=== PATIENT | female | born 1990 | race Caucasian/White ===

== ENCOUNTER 2021-04-21 19:59 | Emergency (ER) | payer OTHER ==
[2021-04-21 20:49] LABS: BILIRUBIN NEGATIVE (NEGATIVE); BLOOD 1+ Ery/uL (NEGATIVE); CLARITY CLEAR (CLEAR); COLOR YELLOW (YELLOW); GLUCOSE (U) NORMAL (NORMAL); LEUKOCYTES NEGATIVE Leu/uL (NEGATIVE); NITRITE NEGATIVE (NEGATIVE); PROTEIN NEGATIVE (NEGATIVE); SPECIFIC GRAVITY 1.015 (1.001-1.030); pH 7.5 (5.0-9.0)
[2021-04-21 20:56] LABS: BACTERIA TRACE
[2021-04-21 21:03] LABS: BASOPHIL 0.3 % (0-2); EOSINOPHIL 2.9 % (0-5); HCT 39.1 % (37.0-47.0); HGB 13.1 g/dl (12.5-16.0); LYMPHOCYTE 37.1 % (15-48); MCH 30.8 pg (25.0-31.0); MCHC 33.5 g/dL (32.0-36.0); MCV 91.8 fL (78.0-100.0); MONOCYTE 6.8 % (0-12); MPV 10.2 fL (6.0-9.5); NEUTROPHIL 52.8 % (41-80); NRBC 0; PLT 372 K/uL (150-400); RBC 4.26 M/uL (4.20-5.40); RDW 12.3 % (11.5-14.0); WBC 9.4 K/uL (4.0-10.5)
[2021-04-21 21:24] LABS: BILIRUBIN - TOTAL 0.2 mg/dL (0.2-1.0); BUN/CREAT RATIO (CALC) 10.3 RATIO; CREATININE 0.87 mg/dL (0.51-0.95); GLOBULIN (CALCULATION) 3.1 g/dL; POTASSIUM 3.4 mmol/L (3.5-5.1); TOTAL PROTEIN 7.1 g/dL (6.4-8.2)
[2021-04-21] MEDS ORDERED: MEDROL 4MG DOSEP4 MG PO (22:04)
[2021-04-21] MEDS ORDERED: IBUPROFEN800 MG PO (22:04)
[2021-04-21] MEDS ORDERED: NORCO 5-325 TA1 EACH PO (22:04)
[2021-04-21] MEDS ORDERED: ONDANSETRON ODT4 MG SL (22:44)
== END 2021-04-21 22:45 | disposition home or self-care (01) ==
LOC: FER 19:59
PROVIDERS: Emergency Medicine Emergency Medical Services
DX: R07.89 Other chest pain (principal); R10.12 Left upper quadrant pain; F17.210 Nicotine dependence, cigarettes, uncomplicated
CPT/HCPCS: 36415; 71045; 80053; 81001; 84484; 85025; 85379; J1100; J1170; J1885; J2270; J2405

== ENCOUNTER 2021-04-23 22:45 | Emergency (ER) | payer OTHER ==
[~2021-04-23 22:45] MED LIST: IBUPROFEN800 MG PO; MEDROL 4MG DOSEP4 MG PO; NORCO 5-325 TA1 EACH PO; ONDANSETRON ODT4 MG SL
[2021-04-23 23:45] LABS: HCT 33.6 % (37.0-47.0); HGB 11.4 g/dl (12.5-16.0); MCH 31.6 pg (25.0-31.0); MCHC 33.9 g/dL (32.0-36.0); MCV 93.1 fL (78.0-100.0); MPV 10.6 fL (6.0-9.5); RBC 3.61 M/uL (4.20-5.40); RDW 12.3 % (11.5-14.0); WBC 10.3 K/uL (4.0-10.5)
[2021-04-24 00:03] LABS: CREATININE 1.07 mg/dL (0.51-0.95); POTASSIUM 3.4 mmol/L (3.5-5.1)
== END 2021-04-24 00:25 | disposition home or self-care (01) ==
LOC: FER 22:45
PROVIDERS: Emergency Medicine
DX: R07.89 Other chest pain (principal); F17.200 Nicotine dependence, unspecified, uncomplicated
CPT/HCPCS: 36415; 80048; 84484; 93005; J1885

== ENCOUNTER 2021-11-06 21:39 | Emergency (ER) | payer OTHER ==
[2021-11-06 21:59] LABS: BASOPHIL 0.4 % (0-2); EOSINOPHIL 3.6 % (0-5); HCT 36.8 % (37.0-47.0); HGB 12.6 g/dl (12.5-16.0); LYMPHOCYTE 31.9 % (15-48); MCH 31.5 pg (25.0-31.0); MCHC 34.2 g/dL (32.0-36.0); MONOCYTE 4.8 % (0-12); MPV 10.5 fL (6.0-9.5); NRBC 0; PLT 277 K/uL (150-400); WBC 10.9 K/uL (4.0-10.5)
[2021-11-06 22:15] LABS: CREATININE 0.75 mg/dL (0.51-0.95); POTASSIUM 3.8 mmol/L (3.5-5.1)
[2021-11-06] MEDS ORDERED: MEDROL 4MG DOSEP4 MG PO (22:43)
[2021-11-06] MEDS ORDERED: ZPAK PO (22:43)
== END 2021-11-06 23:00 | disposition home or self-care (01) ==
LOC: FER 21:39
PROVIDERS: Nurse Practitioner Family
DX: J06.9 Acute upper respiratory infection, unspecified (principal); Z28.310 Unvaccinated for COVID-19
CPT/HCPCS: 36415; 71045; 80048; 85025; 94640; 94664; J1100; J2405